=== PATIENT | female | born 1985 | race Hispanic/Latino ===

== ENCOUNTER 2020-04-07 07:20 | Day surgery (SDC) | payer OTHER, SELFPAY ==
[2020-04-01 15:53] LABS: BUN Blood Urea Nitrogen 12 mg/dL (7-18); Bicarbonate 27 mmol/L (21-32); Glucose Level 124 mg/dL (74-106); Potassium 3.9 mmol/L (3.5-5.1); Sodium Level 141 mmol/L (136-145)
[2020-04-01 16:04] LABS: Absolute Lymphocytes (CBC) 2.3 K/uL (0.7-4.9); Basophils % 0.8 % (0-1.3); Hematocrit 37.4 % (36.0-45.0); Lymphocytes % 33.2 % (15.3-44.8); MPV 8.9 fL (7.6-11.3); RBC Red Blood Cell Count 4.61 M/uL (3.86-4.86)
[2020-04-07] MEDS ORDERED: Ringers Lactate 1,000 ML IV ONE (07:50)
[2020-04-07] MEDS ORDERED: CEFAZOLIN/SWI 1gm 1 GM/10 ML SYR ONE (08:02)
[2020-04-07 08:17] LABS: Specific Gravity 1.015 (1.005-1.030)
[2020-04-07] MEDS ORDERED: FENTANYL CITR 100 MCG/2 ML ONE (08:31)
[2020-04-07] MEDS ORDERED: MIDAZOLAM HCL 2 MG/2 ML INJ ONE (08:31)
[2020-04-07] MEDS ORDERED: propofoL 200 MG/20 ML VIAL IV ONE (08:31)
[2020-04-07] MEDS ORDERED: LIDOCAINE 2% MPF 5 ML VIAL ONE (08:31)
[2020-04-07] MEDS ORDERED: ROCURONIUM 50 MG/5 ML VIAL IV ONE (08:31)
[2020-04-07 08:41] LABS: ALT/SGPT 18 U/L (12-78); Albumin 3.5 g/dL (3.4-5.0); Alkaline Phosphatase 81 U/L (45-117); Amylase 60 U/L (25-115); Bilirubin Direct < 0.1 mg/dL (0-0.2); Bilirubin Total 0.3 mg/dL (0.2-1.0); Lipase 109 U/L (73-393); Protein, Total 7.6 g/dL (6.4-8.2)
[2020-04-07 08:42] LABS: AST/SGOT 17 U/L (15-37)
[2020-04-07] MEDS ORDERED: ONDANSETRON 4 MG/2 ML VIAL ONE (08:56)
[2020-04-07] MEDS ORDERED: dexAMETHasone 10 MG/ML VIAL ONE (08:56)
--- NOTE | 2020-04-07 09:25 | P.BOP ---
Preoperative diagnosis: RUQ abd pain, Gallbladder polyps possible cholelithiasis, incarcerated umbi Postoperative diagnosis: incarcerated umbilical hernia Primary procedure: 1. Laparoscopic cholecystectomy Secondary procedure: 2. open repair of umbilical hernia Estimated blood loss: <10cc Specimen: gb, hernia sac Findings: see dicta Anesthesia: General Complications: None Transferred to: Recovery Room Condition: Good
[2020-04-07] MEDS: MIDAZOLAM HCL 2 MG/2 ML INJ ONE ×2 (09:48→10:00)
[2020-04-07 10:07] VITALS: TEMP 97.4
--- NOTE | 2020-04-07 10:22 | OP ---
Date of Procedure: 04/07/2020 Surgeon: Rylan An MD Preoperative Diagnoses: Right upper quadrant abdominal pain, gallbladder polyps, possible cholelithi asis, incarcerated umbilical hernia. Postoperative Diagnoses: Right upper quadrant abdominal pain, gallbladder polyps, possible cholelith iasis, incarcerated umbilical hernia. Procedures Performed: 1.Laparoscopic cholecystectomy. 2.Open repair of umbilical hernia, incarcerated. Estimated Blood Loss: Less than 10 cc. Specimen: Gallbladder, hernia sac. Findings: The patient has an incarcerated omentum and hernia sac and also have gallbladder pathology . See pathology report. Anesthesia: General plus local. Indications For Surgery: This is the case of a 34-year-old patient with epigastric right upper quadr ant pain radiating to the back, diagnosed with cholecystitis. During the process, the patient has de nsities in the gallbladder, unable to say if these are stones or polyps, but if these are polyps, the y claimed they are increasing in size, so she was concerned about also malignancy, so she wants her g allbladder removed. She also wants umbilical hernia repair at the same time. The benefits, alternat adan, and risks of laparoscopic, possible open cholecystectomy, umbilical hernia repair hernia repair were fully explained which include, but not limited to infection, bleeding, damage to adjacent struc tures, anesthesia complication, choledocholithiasis, bile leak, pancreatitis, UT, and even . Sh e also understands this may not relieve the symptoms, she may need more than one surgical interventio n. She understood, signed a consent. She understands also the chance of recurrence, about importanc e of losing weight, and controlled diet. Description Of Procedure: The patient was brought to the operating room, placed in supine position. Anesthesia was done without complication. Abdominal area was prepped and draped in a sterile fashio n. A time-out was called. Local anesthesia was applied followed by sharp incision of the skin in th e infraumbilical region. Incision was carried down until we find the hernia sac. It was dissected a way from the umbilical skin, opened the hernia sac, noticed incarcerated omentum. Hernia sac was rem derek. Incarcerated omentum was inspected, seemed to be viable. So, reduced back into the abdominal cavity with no bleeding. Hernia sac was removed. After that, we extended incision to accommodate th e Tim trocar. Vicryl #1 was placed inside the fascia. Tim trocar was carefully introduced. P neumoperitoneum was obtained. I placed 3 more trocars, 5 mm each one of them in the epigastric right upper quadrant area under direct visualization using the same technique. After that, we placed a gr asper in the fundus of the gallbladder and another grasper in the infundibulum retracting the gallbla dder in the inferolateral fashion, exposing the triangle of Calot and obtaining critical view. Cysti c duct and cystic artery were clearly isolated, freed circumferentially and a connection between thos e and the gallbladder was clearly identified. I proceeded to ligate those by using at least 3 clips proximal 1 clip distal, ligation in the middle. Same was done with the cystic artery. No bile leak, no bleeding. The gallbladder was removed from liver bed using Bovie cauterizer and removed from abd ominal cavity using EndoCatch through the umbilical incision. It was inspected. Once again, no bile leak, no bleeding. At that moment, I proceeded to remove the trocars under direct vision. Deflated the pneumoperitoneum. Closed the umbilical hernia and the trocar incision with #1 Vicryl. Irrigate d subcutaneous tissue, closed with 3-0 chromic and skin in a subcuticular fashion with 3-0 chromic an d Steri-Strips on top. Sponge count and instrument count were correct. The patient tolerated the pr ocedure well. The patient was sent to recovery in stable condition. ANUP/ANA LUISA Voice ID: [id number] Report ID: [id number]
--- NOTE | 2020-04-07 10:22 | OP ---
Surgeon: Rylan An MD Diagnoses: Right upper quadrant abdominal pain, cholecystitis, gallbladder polyps, possible cholelit hiasis. Procedures Performed: Laparoscopic cholecystectomy, open repair of umbilical hernia, incarcerated. Disposition: Home. Activity: As tolerated. No heavy lifting. Plan: Follow up in my office in 1 week. Call for appointment at [phone]. Keep area dry for 48 rae rs, then may shower. Keep Steri-Strips intact. Medications: Include Tylenol No. 3 q.4 hours p.r.n. pain, Augmentin 875 p.o. q.12 and Zofran 4 q.6h p.r.n. nausea. ANUP/ANA LUISA Voice ID: [id number] Report ID: [id number]
[2020-04-07 10:56] VITALS: BP 157/82; O2SAT 100
[2020-04-07] MEDS ORDERED: CODEINE 30MG/APAP 300MG TAB ONE (11:04)
--- NOTE | 2020-04-07 13:40 | DS ---
Date of Discharge: 04/07/2020 Diagnoses: Right upper quadrant abdominal pain, cholecystitis, gallbladder polyps, possible cholelit hiasis. Procedures Performed: Laparoscopic cholecystectomy; open repair of umbilical hernia, incarcerated. Disposition: Home. Activity: As tolerated. No heavy lifting. Plan: Follow up in my office in 1 week. Call for appointment at [phone]. Keep area dry for 48 rae rs, then may shower. Keep Steri-Strips intact. Medications: Include Tylenol No. 3 q.4 hours p.r.n. pain, Augmentin 875 p.o. q.12 and Zofran 4 q.6 p .r.n. nausea. ANUP/ANA LUISA Voice ID: [id number] Report ID: [id number]
== END 2020-04-07 12:00 | disposition home or self-care (01) ==
LOC: OR 07:20
PROVIDERS: ATTEND Surgery
PROC: 0WQF0ZZ Repair Abdominal Wall, Open Approach (ICD-10-PCS; 2020-04-07)
PROC: 0FT44ZZ Resection of Gallbladder, Percutaneous Endoscopic Approach (ICD-10-PCS; principal; 2020-04-07 09:30)
DX: K81.1 Chronic cholecystitis (principal); K42.0 Umbilical hernia with obstruction, without gangrene; Z20.822 Contact with and (suspected) exposure to COVID-19
CPT/HCPCS: 85025; 80048; 36415 ×2; 82150; 81025; 80076; 88302; 88304; 83690; 47562; 49587; U0002; J2704; J2250 ×2; J3010; J1100; J0690; J7120; J2405